=== PATIENT | female | born 1995 | race Caucasian/White ===

== ENCOUNTER 2022-06-11 14:10 | Emergency (ER) | payer SELFPAY ==
[2022-06-11 14:28] VITALS: BP 125/76; PULSE 91; RESP 18; TEMP 99; BMI 36.0
== END 2022-06-11 18:29 | disposition home or self-care (01) ==
LOC: JERFT 14:10 → JER 14:10 → JERFT 18:29
DX: R51.9 Headache, unspecified (principal); Y04.8XXA Assault by other bodily force, initial encounter
CPT/HCPCS: 70450-TC; 99284-25